=== PATIENT | male | born 2000 | race Caucasian/White ===

== ENCOUNTER 2022-11-28 06:31 | Day surgery (SDC) | payer OTHER ==
[2022-11-28] VITALS (9 sets, daily range): BP systolic 103–120; BP diastolic 46–66; PULSE 64–101; TEMP 98.4–98.9
[~2022-11-28] VITALS: Ht 175.3 cm; Wt 77.3 kg
[2022-11-28 06:54] LABS: COLLECTION METHOD CLEAN CATCH
[2022-11-28 07:01] LABS: URINE APPEARANCE Clear (CLEAR/HAZY); URINE COLOR Yellow (YELLOW)
[2022-11-28 07:02] LABS: PH 5.5 (5.0-8.5); URINE BLOOD Negative (NEGATIVE); URINE GLUCOSE Negative (NEGATIVE); URINE KETONE Negative (NEGATIVE); URINE NITRATE Negative (NEGATIVE); URINE PROTEIN(semi-quant) Negative (NEGATIVE); URINE UROBILINOGEN 0.2 E.U/dL (0.2-1.0)
[2022-11-28 07:06] LABS: SQUAMOUS EPITHELIAL None Seen /hpf (0-10); URINE BACTERIA None Seen /hpf (NONE SEEN); URINE RBC 0-2 /hpf (0-2)
[2022-11-28 07:12] LABS: BASO # 0.1 K/mm3 (0.0-0.2); BASO % 0.4 % (0.0-2.0); EOS # 0.5 K/mm3 (0.0-0.7); EOS % 3.3 % (0.0-4.0); GRAN # 12.3 K/mm3 (1.4-6.5); HEMATOCRIT 45.4 % (42.0-52.0); HEMOGLOBIN 15.2 g/dl (13.5-18.0); LYMPH # 1.9 K/mm3 (1.2-3.4); MEAN CELL VOLUME 87 fl (80.0-100.0); MEAN CORPUSCULAR HEMOGLOBIN 29 pg (27-31); MEAN CORPUSCULAR HGB CONC 34 g/dl (33.0-37.0); MEAN PLATELET VOLUME 9.1 fl (7.4-10.4); MONO # 0.9 K/mm3 (0.1-0.6); MONO % 5.9 % (1.7-9.3); PLATELET COUNT 216 K/mm3 (130-400); RED BLOOD COUNT 5.22 M/mm3 (4.20-5.60); REDCELL DISTRIBUTION WIDTH-CV 12.5 % (11.5-14.5)
[2022-11-28 07:30] LABS: ALBUMIN 4.4 gm/dL (3.5-5.0); BILIRUBIN,TOTAL 0.5 mg/dL (0.2-1.2); C-REACTIVE PROTEIN 0.16 mg/dL (0.00-0.50); CREATININE, serum 1.09 mg/dL (0.72-1.25); POTASSIUM 3.7 mmol/L (3.5-4.5); TOTAL PROTEIN 7.1 gm/dL (6.2-8.1)
--- NOTE | 2022-11-28 10:20 | NUR ---
1000 PT AMBULATORY TO RESTROOM AND RETURNED TO STRETCHER, BECAME PALE AND DIAPHORETIC WHILE IN THE RESTROOM. ASSISTED PT BACK TO STRETCHER AND SUPINE POSITION. TREATED FOR PAIN SX 8/10 AND NAUSEA WITH PRN MEDICATION, PLACED COOL WASHCLOTH ON PT FORHEAD. SX RESOVED. VS NORMAL LIMITS. .
[2022-11-28] MEDS ORDERED: NORCO 325 MG-51 TAB PO (17:36)
--- NOTE | 2022-11-28 20:44 | NUR ---
SHIFT REPORT FROM MEÑO MAGANA. PATIENT IN BED ON ROOM ENTRY. ALERT AND ORIENTED. MOM AT BEDSIDE. DENIES PAIN. DENIES NAUSEA. TOLERATED CRACKERS, JELLO, AND WATER. AMBULATED SBA TO BATHROOM AND VOIDED PALE YELLOW URINE WITHOUT ISSUES. DISCHARGE TEACHING COMPLETED AND ALL QUESTIONS ANSWERED. IV TO R AC DISCONTINUED, BANDAID APPLIED. DISCHARGED AT 2000 TO HOME WITH FAMILY.
== END 2022-11-28 20:01 | disposition home or self-care (01) ==
LOC: COL.ER 06:31 → SDCO 08:24 → SURG 18:11 → SDCO 18:11 → SURG 20:01 → SDCO 20:01
PROVIDERS: Emergency Medicine
DX: K35.80 Unspecified acute appendicitis (principal); L04.1 Acute lymphadenitis of trunk
CPT/HCPCS: OP; J1100; J1885; J2270; J2405; J2543; J2704; J3010; J7030; J7120; Q9967